=== PATIENT | female | born 1990 | race Caucasian/White ===

== ENCOUNTER → 2016-12-29 | Outpatient (CLI) | payer OTHER ==
--- NOTE | 2016-12-29 15:32 | Diagnostic Imaging Report ---
INDICATION: Undergoing anatomical assessment. TECHNIQUE: Multiple real-time grayscale images were obtained of the gravid uterus. CORRELATION STUDY: None FINDINGS: Single viable intrauterine is currently in a breech presentation. There appears to be normal amount of amniotic fluid. Placenta is developing anteriorly and without evidence for previa Cervical length is 3.76 cm. anatomical evaluation has an unremarkable appearance. However, owing to the position, the spine is nearly well assessed. Biometrical measurements are as follows: Biparietal diameter 4.74 cm, age 20 weeks 3 days . Head circumference 18.13 cm, age 20 weeks 4 days . Abdominal circumference 15.78 cm, age 21 weeks zero days . Femur length 3.63 cm, age 21 weeks 4 days . Sonographic estimated age: 21 weeks zero days. Sonographic estimated date of delivery: 05/11/2017. heart rate: 155 BPM Estimated Weight: 399 gm (+/- 58 gm) LMP Percentile: 67% IMPRESSION: 1. Single intrauterine in a breech presentation. Sonographic estimated age of 21 weeks zero days for an estimated date of delivery of May 11, 2017. 2. anatomical assessment is unremarkable. However, the spine cannot be well evaluated at this time. Dictated by: Dictated on workstation # [id number]
== END ==
LOC: RAD 09:59
PROVIDERS: ATTEND Obstetrics & Gynecology
DX: Z34.82 Encounter for supervision of other normal pregnancy, second trimester (principal)
CPT/HCPCS: 76805

== ENCOUNTER → 2017-02-22 | Outpatient (CLI) | payer OTHER ==
--- NOTE | 2017-02-22 13:02 | Diagnostic Imaging Report ---
EXAMINATION: OB ultrasound. INDICATION: Followup spine. FINDINGS: The position is cephalic. The heart rate is 143 BPM. The placenta is anterior. No placenta previa. The spine is better seen at this time with no abnormality seen. The KIRSTIN is 12.4 cm. IMPRESSION: The spine appears unremarkable. Completed survey. Dictated by: Dictated on workstation # [id number]
== END ==
LOC: RAD 09:50
PROVIDERS: ATTEND Obstetrics & Gynecology
DX: Z34.82 Encounter for supervision of other normal pregnancy, second trimester (principal); Z36 Encounter for antenatal screening of mother
CPT/HCPCS: 76816

== ENCOUNTER → 2017-04-14 | Outpatient (CLI) | payer OTHER | LOC: CARD 11:12 | PROVIDERS: ATTEND Internal Medicine Cardiovascular Disease | DX: Z34.90 Encounter for supervision of normal pregnancy, unspecified, unspecified trimester (principal); J45.909 Unspecified asthma, uncomplicated; F41.9 Anxiety disorder, unspecified; R07.89 Other chest pain ==

== ENCOUNTER 2017-04-24 09:21 | Inpatient (IN) | payer OTHER ==
[2017-04-24] VITALS (60 sets, daily range): BP systolic 81–152; BP diastolic 41–84
[~2017-04-24] VITALS: Ht 167.6 cm; Wt 97.1 kg
[2017-04-24] MEDS ORDERED: MISOPROSTOL 100 MCG (CYTOTEC) TAB PO ONE ×2 (10:15→15:00)
[2017-04-24] MEDS ORDERED: NS IV 500 ML 500 ML IV SCH (10:15)
[2017-04-24] MEDS ORDERED: MINERAL OIL CONCENTRATE 99.9% 15 ML UDC TOP SCH (10:15)
[2017-04-24 10:22] LABS: BASOPHILS % (AUTO) 0 % (0-10); EOSINOPHILS # (AUTO) 0.1 10^3/uL (0.0-0.3); EOSINOPHILS % (AUTO) 1 % (0-10); LYMPHOCYTES # (AUTO) 2.2 X 10^3 (1.0-4.0); LYMPHOCYTES % (AUTO) 16 % (12-44); MEAN CORPUSCULAR HEMOGLOBIN 29 PG (25-34); MEAN CORPUSCULAR HGB CONC 33 G/DL (32-36); MEAN CORPUSCULAR VOLUME 87 FL (80-99); MEAN PLATELET VOLUME 11.2 FL (7.4-10.4); MONOCYTES # (AUTO) 1.3 X 10^3 (0.0-1.0); MONOCYTES % (AUTO) 10 % (0-12); NEUTROPHILS # (AUTO) 9.7 X 10^3 (1.8-7.8); NEUTROPHILS % (AUTO) 73 % (42-75); PLATELET COUNT 184 10^3/uL (130-400); RED BLOOD COUNT 4.32 10^6/uL (4.35-5.85); RED CELL DISTRIBUTION WIDTH 13.7 % (10.0-14.5); WHITE BLOOD COUNT 13.3 10^3/uL (4.3-11.0)
[2017-04-24] MEDS: D5 LR IV SOLUTION 1,000 ML IV SCH ×2 (10:26→21:14)
[2017-04-24] MEDS ORDERED: PREN1TAB86 PO (10:56)
[2017-04-24] MEDS ORDERED: RT-ALBUINH IH (10:58)
--- NOTE | 2017-04-24 12:37 | History & Physical-OB ---
OB - Chief Complaint & HPI Date/Time Date of Admission: Date of Admission: Apr 24, 2017 at 9:21 am Time Seen by Provider: 08:30 Chief Complaint/History OB-Reason for Admission/Chief: Induction of Labor Hx : 7 Hx Para: 1 Expected Date of Delivery: May 13, 2017 Gestational Age in Weeks: 37 Gestational Age in Days: 2 Other reason for admission: Patient sent up for delivery due to Oligohydramnios on BPP in office today as well as score of 4/8. KIRSTIN was 3.9cm. Vertex presentation. BP elevated in office as well, 140s/90s History of Labs A pos Antibody neg RI RPR NR HBsAg NR HIV NR GC neg GBS neg AFP elevated on Quad screen Allergies and Home Medications Allergies Coded Allergies: No Known Drug Allergies (Unverified , 04/24/17) Home Medications Albuterol Sulfate 1 Puff Puff, 2 PUFF IH Q6H, (Reported) 1 PUFF = 90 MCG Vit W-Ca,Fe,FA(<1 mg) 1 Each Tablet, 1 EACH PO DAILY, (Reported) OB - History Hx of Present Care: Yes Ultrasounds: Normal mid trimester US Obstetrical Complications: Other (Abn Quad screen, Oligohydramnios) Medical Complications: None Delivery History Adverse Rxn to Tranfusion: No Patient Past Medical History scoliosis, asthma Social History/Family History HIV/AIDS: No Recent Infectious Disease Expo: No Sexually Transmitted Disease: No Alcohol Use: Denies Use Recreational Drug Use: No Immunizations Hepatitis A: Yes Hepatitis B: Yes OB - Admission Exam Physical Exam Date Seen by Provider: Apr 24, 2017 Time Seen by Provider: 08:40 HEENT: NCAT Heart: Rhythm Normal Lungs: Clear Abdomen: Gravid Extremities: Normal Reflexes: Normal Cervical Dilatation: 1cm Effacement: 75% Station: -2 Membranes: Intact Heart Rate: 130's Accelerations: Accelerations Present Decelerations: No Decelerations Short Term Variability: Present Spring Assembler Variability: Average (6-25) Contractions on Admission: >10 Minutes Apart Intensity: Mild Wilson Scoring Tool (Modified) Dilation (cm): 1-2cm (1) Effacement (%): 51-79% (2) Descent/Station: -2 (1) Cervix Consistency: Soft (2) Cervix Position: Middle/Mid-Position (1) Add 1 point for: Each previous vaginal delivery (1) Wilson Score: 8 Labs Laboratory Tests Test 04/24/17 10:00 Range/Units White Blood Count 13.3 H 4.3-11.0 10^3/uL Red Blood Count 4.32 L 4.35-5.85 10^6/uL Hemoglobin 12.5 11.5-16.0 G/DL Hematocrit 38 35-52 % Mean Corpuscular Volume 87 80-99 FL Mean Corpuscular Hemoglobin 29 25-34 PG Mean Corpuscular Hemoglobin Concent 33 32-36 G/DL Red Cell Distribution Width 13.7 10.0-14.5 % Platelet Count 184 130-400 10^3/uL Mean Platelet Volume 11.2 H 7.4-10.4 FL Neutrophils (%) (Auto) 73 42-75 % Lymphocytes (%) (Auto) 16 12-44 % Monocytes (%) (Auto) 10 0-12 % Eosinophils (%) (Auto) 1 0-10 % Basophils (%) (Auto) 0 0-10 % Neutrophils # (Auto) 9.7 H 1.8-7.8 X 10^3 Lymphocytes # (Auto) 2.2 1.0-4.0 X 10^3 Monocytes # (Auto) 1.3 H 0.0-1.0 X 10^3 Eosinophils # (Auto) 0.1 0.0-0.3 10^3/uL Basophils # (Auto) 0.0 0.0-0.1 10^3/uL OB - Assessment/Plan/Diagnosis Assessment Assessment: induction of labor Plan Plan: Induction Induction Method: per Misoprostol Protocol Discharge Diagnosis Diagnosis: 26 yo @ 37.2 Oligohydramnios Elevated serum AFP on quad screen- increased risk for NTD. GBS neg ADILIA THOMAS DO Apr 24, 2017 12:37 pm
[2017-04-24] MEDS ORDERED: MISOPROSTOL 200 MCG (CYTOTEC) TABLET PO ONE (14:00)
[2017-04-24] MEDS ORDERED: CATHETER FLUSH 10 ML SYR IV SCH (14:00)
[2017-04-24] MEDS ORDERED: SUFENTA 0.6MCG/ML BUPIVA 0.125 100 ML ONE (16:31)
[2017-04-24] MEDS ORDERED: fentaNYL INJECTION 100 MCG/2 ML AMP ONE (16:32)
[2017-04-24] MEDS ORDERED: LIDOCAINE PF 2% 5 ML (XYLOCAINE) VIAL ONE (16:32)
[2017-04-24] MEDS ORDERED: BUPIVACAINE 0.5% 30 ML (SENSORCAINE) VIAL ONE (16:32)
[2017-04-24] MEDS ORDERED: LACTATED RINGERS 1,000 ML IV SCH (17:28)
[2017-04-24] MEDS ORDERED: ONDANSETRON 4 MG/2 ML (SDV) Z0FRAN IV PRN (17:30)
[2017-04-24] MEDS ORDERED: NALOXONE 0.4 MG/ML 1 ML (NARCAN) VIAL IV PRN (17:30)
[2017-04-24] MEDS ORDERED: EPIDURAL (SUFENTA 0.6MCG/ML BUPIVA 0.125%) 100 ML BAG EPI PRN (17:30)
[2017-04-24] MEDS: diphenhydrAMINE 50 MG/ML INJ (BENADRYL) IV PRN ×2 (18:43→19:30)
[2017-04-24] MEDS ORDERED: ACETAMINOPHEN 500 MG TAB (TYLENOL) ONE (19:54)
[2017-04-24] MEDS ORDERED: ACETAMINOPHEN 500 MG TAB (TYLENOL) PO ONE (20:15)
[2017-04-24] MEDS ORDERED: OXYTOCIN/NORMAL SALINE 500 ML IV SCH (20:39)
[2017-04-24] MEDS ORDERED: LIDOCAINE/EPI 1%-1:200,000 (XYLOCAINE) 30 ML VIAL ONE (23:14)
[2017-04-25] VITALS (8 sets, daily range): BP systolic 114–130; BP diastolic 58–76
[2017-04-25] MEDS ORDERED: OXYTOCIN/NORMAL SALINE 500 ML IV SCH (00:02)
--- NOTE | 2017-04-25 00:08 | OB Labor & Delivery Record ---
L&D History Date of Service Date of Service: Apr 25, 2017 History Expected Date of Delivery: May 13, 2017 Gestational Age in Weeks: 37 Hx : 7 Hx Para: 1 Complications Events: Oliohydramnios (Elevated AFP on Quad), Routine care Operative Indications (Cesarea: N/A-Vaginal Delivery Intrapartal Events: None L&D Stage1 Stage One Onset of Labor - Date: Apr 25, 2017 Monitors and Tracing Monitor Mode: External Heart Rate: 150 Station: -2 Short Term Variability: Present Presentation: Vertex Vital Signs VS - Last 72 Hours, by Label 04/24/17 04/24/17 04/24/17 04/24/17 09:33 10:32 11:02 11:33 Temp 97.8 Pulse 100 82 81 85 Resp 18 18 18 18 B/P (MAP) 126/79 128/66 123/58 131/74 Pulse Ox 98 O2 Delivery Room Air Room Air Room Air Room Air 04/24/17 04/24/17 04/24/17 04/24/17 12:03 12:33 13:03 13:33 Temp 98.6 98.0 Pulse 82 72 76 74 Resp 18 18 18 18 B/P (MAP) 132/78 118/70 120/63 125/64 Pulse Ox 99 O2 Delivery Room Air Room Air Room Air Room Air 04/24/17 04/24/17 04/24/17 04/24/17 14:03 14:33 15:03 15:33 Temp 98.2 Pulse 70 69 74 71 Resp 18 18 18 18 B/P (MAP) 132/72 132/83 131/75 130/83 Pulse Ox 99 99 O2 Delivery Room Air Room Air Room Air Room Air 04/24/17 04/24/17 04/24/17 04/24/17 16:01 16:31 17:01 17:09 Temp 98.4 Pulse 71 77 96 86 Resp 18 18 18 18 B/P (MAP) 127/76 129/74 132/74 123/65 Pulse Ox 100 100 O2 Delivery Room Air Room Air Room Air Room Air 04/24/17 04/24/17 04/24/17 04/24/17 17:12 17:16 17:20 17:22 Pulse 90 96 68 64 Resp 18 18 18 18 B/P (MAP) 133/74 119/57 86/42 81/41 Pulse Ox 99 99 99 99 O2 Delivery Room Air Room Air Room Air Room Air 04/24/17 04/24/17 04/24/17 04/24/17 17:25 17:28 17:31 17:34 Temp 98.4 Pulse 72 90 93 97 Resp 18 18 18 18 B/P (MAP) 121/59 115/50 118/55 113/57 Pulse Ox 100 100 100 100 O2 Delivery Room Air Room Air Room Air Room Air 04/24/17 04/24/17 04/24/17 04/24/17 17:37 17:40 17:43 17:46 Pulse 82 93 85 82 Resp 18 18 18 18 B/P (MAP) 114/59 109/57 104/55 107/53 Pulse Ox 100 100 99 99 O2 Delivery Room Air Room Air Room Air Room Air 04/24/17 04/24/17 04/24/17 04/24/17 17:49 17:52 17:55 18:00 Pulse 81 86 78 81 Resp 18 18 18 18 B/P (MAP) 112/56 111/57 110/57 109/58 Pulse Ox 99 99 100 100 O2 Delivery Room Air Room Air Room Air Room Air 04/24/17 04/24/17 04/24/17 04/24/17 18:15 18:30 18:45 19:00 Temp 98.1 98.8 Pulse 88 93 75 83 Resp 18 18 18 18 B/P (MAP) 114/57 129/62 125/66 131/76 Pulse Ox 99 O2 Delivery Room Air Room Air Room Air Room Air 04/24/17 04/24/17 04/24/17 19:10 19:40 20:05 Temp 100.4 101.0 101.4 Pulse 93 Resp 20 Pulse Ox 98 O2 Delivery Room Air Rupture of Membranes Spontaneous Ruture of Membrane: No Amniotic Membrane Fluid Desc.: Clear Vaginal Bleeding Description: Normal Show Induction/Anesthesia Epidural Cath Placement - Time: 1707 Progress/Notes Misoprostol used x 2 doses prior to epidural placement and Arom. Patient augmented with pitocin at 3-4 cm after AROM and epidural placement L&D Stage2 Stage Two Stage II Date: Apr 25, 2017 Monitors and Tracing Monitor Mode: External Heart Rate: 150 Monitor Accelerations: Uniform Monitor Decelerations: Variable Senior Care Variability: Average (6-10) Short Term Variability: Present Position: Right Occiput Anterior Presentation: Vertex Cord Descript/Complications Cord Vessel Description: 3 Vessels Delivery Type Delivery Method: Spontaneous Vaginal Anterior Shoulder: Right Episiotomy/Perineal Laceration Laceraction(s)/Extensions: Yes Degree (describe repair) clitoral laceration noted and repaired using 3-0 rapide in normal fashion Condition of Infant Delivery 1 minute Comment: 8 5 minute Comment: 9 Notes Live female infant weight 6lbs 12 oz Condition of Infant Condition of Infant: Living Exam: No Observed Abnormalities Resuscitation Resuscitation: N/A - Spontaneous Resp L&D Stage3 Stage Three Stage III Date: Apr 25, 2017 Pictocin Pitocin Administration Comment: 30 mu wide open at delivery of placenta Placenta Delivery Placenta Delivery: Spontaneous Delivery Summary Summary blood loss >1000ml: No Vaginal blood loss >500ml: No 250 mL Attending at delivery: Adilia Thomas DO Condition of Delivery Examined: Cervix Examined, Uterus Explored Post Hemorrhage: No Condition of Mother stable Condition of Infant (s) stable ADILIA THOMAS DO Apr 25, 2017 00:08
[2017-04-25] MEDS ORDERED: MEASLES,MUMPS,RUBELLA 1 EA INJ SQ ONE (00:15)
[2017-04-25] MEDS ORDERED: TETANUS,DIPTH,PERTUSS P/F (BOOSTRIX) 0.5 ML VIAL IM ONE (00:15)
[2017-04-25] MEDS ORDERED: DIBUCAINE (NUPERCAINAL) 1% OINT 30 GM TOP PRN (00:15)
[2017-04-25] MEDS ORDERED: WITCH HAZEL(TUCKS) 40 EA JAR TOP PRN (00:15)
[2017-04-25] MEDS ORDERED: BENZOCAINE/MENTHOL (DERMOPLAST) 56 ML CAN TP PRN (00:15)
--- NOTE | 2017-04-25 00:33 | Progress Note-Standard ---
Standard Progress Note Progress Notes/Assess & Plan Date Seen by Provider: Apr 25, 2017 Time Seen by Provider: 11:20 Progress/Assessment & Plan Patient doing well, no concerns voiced this am. Denies lightheadedness/ dizzyness on ambulation. Lochia light. Pain well controlled. Ambulating and voiding freely. Vital Sign - Last 24 Hours 04/24/17 04/24/17 04/24/17 04/24/17 11:33 12:03 12:33 13:03 Temp 98.6 Pulse 85 82 72 76 Resp 18 18 18 18 B/P (MAP) 131/74 132/78 118/70 120/63 Pulse Ox 99 O2 Delivery Room Air Room Air Room Air Room Air 04/24/17 04/24/17 04/24/17 04/24/17 13:33 14:03 14:33 15:03 Temp 98.0 98.2 Pulse 74 70 69 74 Resp 18 18 18 18 B/P (MAP) 125/64 132/72 132/83 131/75 Pulse Ox 99 99 O2 Delivery Room Air Room Air Room Air Room Air 04/24/17 04/24/17 04/24/17 04/24/17 15:33 16:01 16:31 17:01 Temp 98.4 Pulse 71 71 77 96 Resp 18 18 18 18 B/P (MAP) 130/83 127/76 129/74 132/74 Pulse Ox 100 O2 Delivery Room Air Room Air Room Air Room Air 04/24/17 04/24/17 04/24/17 04/24/17 17:09 17:12 17:16 17:20 Pulse 86 90 96 68 Resp 18 18 18 18 B/P (MAP) 123/65 133/74 119/57 86/42 Pulse Ox 100 99 99 99 O2 Delivery Room Air Room Air Room Air Room Air 04/24/17 04/24/17 04/24/17 04/24/17 17:22 17:25 17:28 17:31 Pulse 64 72 90 93 Resp 18 18 18 18 B/P (MAP) 81/41 121/59 115/50 118/55 Pulse Ox 99 100 100 100 O2 Delivery Room Air Room Air Room Air Room Air 04/24/17 04/24/17 04/24/17 04/24/17 17:34 17:37 17:40 17:43 Temp 98.4 Pulse 97 82 93 85 Resp 18 18 18 18 B/P (MAP) 113/57 114/59 109/57 104/55 Pulse Ox 100 100 100 99 O2 Delivery Room Air Room Air Room Air Room Air 04/24/17 04/24/17 04/24/17 04/24/17 17:46 17:49 17:52 17:55 Pulse 82 81 86 78 Resp 18 18 18 18 B/P (MAP) 107/53 112/56 111/57 110/57 Pulse Ox 99 99 99 100 O2 Delivery Room Air Room Air Room Air Room Air 04/24/17 04/24/17 04/24/17 04/24/17 18:00 18:15 18:30 18:45 Temp 98.1 98.8 Pulse 81 88 93 75 Resp 18 18 18 18 B/P (MAP) 109/58 114/57 129/62 125/66 Pulse Ox 100 99 O2 Delivery Room Air Room Air Room Air Room Air 04/24/17 04/24/17 04/24/17 04/24/17 19:00 19:10 19:20 19:30 Temp 100.4 Pulse 83 93 81 85 Resp 18 20 18 18 B/P (MAP) 131/76 104/49 134/70 Pulse Ox 98 O2 Delivery Room Air Room Air Room Air Room Air 04/24/17 04/24/17 04/24/17 04/24/17 19:40 19:46 20:00 20:05 Temp 101.0 101.4 101.4 Pulse 86 90 Resp 18 18 B/P (MAP) 131/59 137/63 O2 Delivery Room Air Room Air 04/24/17 04/24/17 04/24/17 04/24/17 20:17 20:31 20:47 21:00 Temp 100.7 Pulse 80 76 75 85 Resp 18 18 18 18 B/P (MAP) 124/69 142/84 132/68 123/66 O2 Delivery Room Air Room Air Room Air Room Air 04/24/17 04/24/17 04/24/17 04/24/17 21:17 21:21 21:25 21:30 Temp 100.8 Pulse 76 87 89 82 Resp 18 18 18 18 B/P (MAP) 132/66 146/58 139/67 136/63 Pulse Ox 97 97 99 O2 Delivery Room Air Room Air Room Air Room Air 04/24/17 04/24/17 04/24/17 04/24/17 21:41 21:45 21:50 21:55 Pulse 85 79 85 86 Resp 18 18 18 18 B/P (MAP) 131/65 129/62 128/75 129/67 Pulse Ox 96 98 98 98 O2 Delivery Room Air Room Air Room Air Room Air 04/24/17 04/24/17 04/24/17 04/24/17 22:00 22:05 22:10 22:15 Pulse 86 92 89 80 Resp 18 18 18 18 B/P (MAP) 133/77 135/82 135/62 135/72 Pulse Ox 98 98 98 99 O2 Delivery Room Air Room Air Room Air Room Air 04/24/17 04/24/17 04/24/17 04/24/17 22:33 22:50 23:05 23:20 Pulse 88 74 84 100 Resp 18 18 18 18 B/P (MAP) 139/63 128/62 126/58 152/65 Pulse Ox 98 98 97 99 O2 Delivery Room Air Room Air Room Air Room Air 04/25/17 04/25/17 04/25/17 04/25/17 00:02 00:18 00:32 04:00 Temp 98.2 Pulse 100 98 96 81 Resp 18 18 18 18 B/P (MAP) 114/58 119/58 123/64 118/65 O2 Delivery Room Air Room Air Room Air 04/25/17 09:08 Temp 98.2 Pulse 99 Resp 18 B/P (MAP) 130/76 Pulse Ox 98 O2 Delivery Room Air Intake and Output 04/24/17 04/24/17 04/25/17 15:00 23:00 07:00 Intake Total 500 ml 2000 ml Balance 500 ml 2000 ml Uterine fundus, firm and palpated below umbilicus Diagnosis: PPD 1 NVD Acute blood loss anemia superimposed on anemia of P: Replace iron Possible dc tomorrow ADILIA THOMAS DO Apr 25, 2017 00:33
[2017-04-25] MEDS ORDERED: IBUP-1773 PO (00:37)
[2017-04-25] MEDS ORDERED: BENZ56AE2 TP (00:37)
[2017-04-25] MEDS ORDERED: DOCU100C37 PO (00:37)
[2017-04-25] MEDS ORDERED: ACET1TAB43 PO (00:37)
--- NOTE | 2017-04-25 00:38 | Discharge Inst-Women's Service ---
Discharge Inst-Women's Serv Depart Medication/Instructions New, Converted or Re-Newed RX: RX on Chart Consults/Follow Up Additional Follow Up: Yes Orders/Referrals Dr. Thomas in 6 weeks Activity Activity: Activity as Tolerated Driving Instructions: No Driving for 1 Week NO SMOKING: NO SMOKING Nothing Inside Vagina: No Douching, No Bovill, No Tampons Diet Discharge Diet: No Restrictions Symptoms to Report to : Bleeding Excessive, Pain Increased, Fever Over 101 Degrees F, Vaginal Bleeding Increase, Questions/Concerns For Any Problems or Questions: Contact Your Physician Skin/Wound Care Bathing Instructions: Shower ( x 2 weeks) ADILIA THOMAS DO Apr 25, 2017 12:38 am
[2017-04-25] MEDS: IBUPROFEN 600 MG (MOTRIN) TAB PO SCH ×4 (01:09→20:11)
[2017-04-25] MEDS ORDERED: CATHETER FLUSH 10 ML SYR IV SCH (06:00)
[2017-04-25] MEDS: PRENATAL VITAMIN 1 EA TAB PO SCH (09:07)
[2017-04-25] MEDS: DOCUSATE SODIUM 100 MG (COLACE) CAP PO SCH ×2 (09:08→20:11)
[2017-04-25] MEDS: FERROUS SULF 325 MG (IRON) TAB PO SCH (09:08)
--- NOTE | 2017-04-25 10:29 | Anesthesia-Regional Post-Op ---
Regional Patient Condition Mental Status: Alert, Oriented x3 Circulation: Same as Pre-Op Headache: Absent Sensation: Full Recovery Motor Block: Absent Post Op Complications Complications None Follow Up Care/Instructions Patient Instructions None needed. Anesthesia/Patient Condition Patient is doing well, no complaints, stable vital signs, no apparent adverse anesthesia problems. No complications reported per nursing. MAGNUS LANDERS CRNA Apr 25, 2017 10:29
[2017-04-25] MEDS: APAP 300 MG/CODEINE 30 MG (TYLENOL #3) TAB PO PRN (14:06)
[2017-04-26 03:00] VITALS: BP 123/82
[2017-04-26] MEDS: APAP 300 MG/CODEINE 30 MG (TYLENOL #3) TAB PO PRN (03:10)
[2017-04-26] MEDS: IBUPROFEN 600 MG (MOTRIN) TAB PO SCH ×2 (03:10→08:29)
[2017-04-26 05:44] LABS: BASOPHILS % (AUTO) 0 % (0-10); EOSINOPHILS # (AUTO) 0.1 10^3/uL (0.0-0.3); EOSINOPHILS % (AUTO) 1 % (0-10); LYMPHOCYTES # (AUTO) 2.3 X 10^3 (1.0-4.0); LYMPHOCYTES % (AUTO) 21 % (12-44); MEAN CORPUSCULAR HEMOGLOBIN 29 PG (25-34); MEAN CORPUSCULAR HGB CONC 33 G/DL (32-36); MEAN CORPUSCULAR VOLUME 88 FL (80-99); MEAN PLATELET VOLUME 11.2 FL (7.4-10.4); MONOCYTES % (AUTO) 9 % (0-12); NEUTROPHILS # (AUTO) 7.4 X 10^3 (1.8-7.8); NEUTROPHILS % (AUTO) 68 % (42-75); PLATELET COUNT 167 10^3/uL (130-400); RED BLOOD COUNT 3.95 10^6/uL (4.35-5.85); RED CELL DISTRIBUTION WIDTH 13.8 % (10.0-14.5); WHITE BLOOD COUNT 10.9 10^3/uL (4.3-11.0)
[2017-04-26 08:25] VITALS: BP 132/74
--- NOTE | 2017-04-26 08:28 | Postpartum Progress Note ---
Note Note Day # 2 Subjective: Patient is without complaints. Ambulating, voiding. Tolerating a regular diet without nausea or vomiting. Normal lochia. Pain is well controlled with oral pain medications. Bottle feeding. Reports decreased hearing in left ear, feels congested, son also has URI. States had mastoiditis following first delivery from ear drum "popping" with pushing - pushed significantly less long this time however. Objective: VS - Last 72 Hours, by Label 04/24/17 04/24/17 04/24/17 04/24/17 09:33 10:32 11:02 11:33 Temp 97.8 Pulse 100 82 81 85 Resp 18 18 18 18 B/P (MAP) 126/79 128/66 123/58 131/74 Pulse Ox 98 O2 Delivery Room Air Room Air Room Air Room Air 04/24/17 04/24/17 04/24/17 04/24/17 12:03 12:33 13:03 13:33 Temp 98.6 98.0 Pulse 82 72 76 74 Resp 18 18 18 18 B/P (MAP) 132/78 118/70 120/63 125/64 Pulse Ox 99 O2 Delivery Room Air Room Air Room Air Room Air 04/24/17 04/24/17 04/24/17 04/24/17 14:03 14:33 15:03 15:33 Temp 98.2 Pulse 70 69 74 71 Resp 18 18 18 18 B/P (MAP) 132/72 132/83 131/75 130/83 Pulse Ox 99 99 O2 Delivery Room Air Room Air Room Air Room Air 04/24/17 04/24/17 04/24/17 04/24/17 16:01 16:31 17:01 17:09 Temp 98.4 Pulse 71 77 96 86 Resp 18 18 18 18 B/P (MAP) 127/76 129/74 132/74 123/65 Pulse Ox 100 100 O2 Delivery Room Air Room Air Room Air Room Air 04/24/17 04/24/17 04/24/17 04/24/17 17:12 17:16 17:20 17:22 Pulse 90 96 68 64 Resp 18 18 18 18 B/P (MAP) 133/74 119/57 86/42 81/41 Pulse Ox 99 99 99 99 O2 Delivery Room Air Room Air Room Air Room Air 7/304/24/17 04/24/17 04/24/17 17:25 17:28 17:31 17:34 Temp 98.4 Pulse 72 90 93 97 Resp 18 18 18 18 B/P (MAP) 121/59 115/50 118/55 113/57 Pulse Ox 100 100 100 100 O2 Delivery Room Air Room Air Room Air Room Air 04/24/17 04/24/17 04/24/17 04/24/17 17:37 17:40 17:43 17:46 Pulse 82 93 85 82 Resp 18 18 18 18 B/P (MAP) 114/59 109/57 104/55 107/53 Pulse Ox 100 100 99 99 O2 Delivery Room Air Room Air Room Air Room Air 04/24/17 04/24/17 04/24/17 04/24/17 17:49 17:52 17:55 18:00 Pulse 81 86 78 81 Resp 18 18 18 18 B/P (MAP) 112/56 111/57 110/57 109/58 Pulse Ox 99 99 100 100 O2 Delivery Room Air Room Air Room Air Room Air 04/24/17 04/24/17 04/24/17 04/24/17 18:15 18:30 18:45 19:00 Temp 98.1 98.8 Pulse 88 93 75 83 Resp 18 18 18 18 B/P (MAP) 114/57 129/62 125/66 131/76 Pulse Ox 99 O2 Delivery Room Air Room Air Room Air Room Air 04/24/17 04/24/17 04/24/17 04/24/17 19:10 19:20 19:30 19:40 Temp 100.4 101.0 Pulse 93 81 85 Resp 20 18 18 B/P (MAP) 104/49 134/70 Pulse Ox 98 O2 Delivery Room Air Room Air Room Air 04/24/17 04/24/17 04/24/17 04/24/17 19:46 20:00 20:05 20:17 Temp 101.4 101.4 Pulse 86 90 80 Resp 18 18 18 B/P (MAP) 131/59 137/63 124/69 O2 Delivery Room Air Room Air Room Air 04/24/17 04/24/17 04/24/17 04/24/17 20:31 20:47 21:00 21:17 Temp 100.7 Pulse 76 75 85 76 Resp 18 18 18 18 B/P (MAP) 142/84 132/68 123/66 132/66 O2 Delivery Room Air Room Air Room Air Room Air 04/24/17 04/24/17 04/24/17 04/24/17 21:21 21:25 21:30 21:41 Temp 100.8 Pulse 87 89 82 85 Resp 18 18 18 18 B/P (MAP) 146/58 139/67 136/63 131/65 Pulse Ox 97 97 99 96 O2 Delivery Room Air Room Air Room Air Room Air 04/24/17 04/24/17 04/24/17 04/24/17 21:45 21:50 21:55 22:00 Pulse 79 85 86 86 Resp 18 18 18 18 B/P (MAP) 129/62 128/75 129/67 133/77 Pulse Ox 98 98 98 98 O2 Delivery Room Air Room Air Room Air Room Air 04/24/17 04/24/17 04/24/17 04/24/17 22:05 22:10 22:15 22:33 Pulse 92 89 80 88 Resp 18 18 18 18 B/P (MAP) 135/82 135/62 135/72 139/63 Pulse Ox 98 98 99 98 O2 Delivery Room Air Room Air Room Air Room Air 04/24/17 04/24/17 04/24/17 04/25/17 22:50 23:05 23:20 00:02 Pulse 74 84 100 100 Resp 18 18 18 18 B/P (MAP) 128/62 126/58 152/65 114/58 Pulse Ox 98 97 99 O2 Delivery Room Air Room Air Room Air Room Air 04/25/17 04/25/17 04/25/17 04/25/17 00:18 00:32 04:00 09:08 Temp 98.2 98.2 Pulse 98 96 81 99 Resp 18 18 18 18 B/P (MAP) 119/58 123/64 118/65 130/76 Pulse Ox 98 O2 Delivery Room Air Room Air Room Air 04/25/17 04/25/17 04/25/17 04/26/17 14:06 16:42 20:10 03:00 Temp 97.9 98.2 97.8 98.2 Pulse 83 84 85 77 Resp 18 18 18 18 B/P (MAP) 122/76 116/71 128/75 123/82 Pulse Ox 98 97 98 99 O2 Delivery Room Air Room Air Room Air Room Air Physical Exam: General - Alert and oriented, no apparent distress Abdomen - Soft, appropriately tender to palpation, non-distended, fundus firm at umbilicus Extremities - 1+ bilat pitting edema, negative Reynaldo's bilaterally Laboratory Tests Test 04/26/17 05:30 Range/Units White Blood Count 10.9 4.3-11.0 10^3/uL Red Blood Count 3.95 L 4.35-5.85 10^6/uL Hemoglobin 11.4 L 11.5-16.0 G/DL Hematocrit 35 35-52 % Mean Corpuscular Volume 88 80-99 FL Mean Corpuscular Hemoglobin 29 25-34 PG Mean Corpuscular Hemoglobin Concent 33 32-36 G/DL Red Cell Distribution Width 13.8 10.0-14.5 % Platelet Count 167 130-400 10^3/uL Mean Platelet Volume 11.2 H 7.4-10.4 FL Neutrophils (%) (Auto) 68 42-75 % Lymphocytes (%) (Auto) 21 12-44 % Monocytes (%) (Auto) 9 0-12 % Eosinophils (%) (Auto) 1 0-10 % Basophils (%) (Auto) 0 0-10 % Neutrophils # (Auto) 7.4 1.8-7.8 X 10^3 Lymphocytes # (Auto) 2.3 1.0-4.0 X 10^3 Monocytes # (Auto) 1.0 0.0-1.0 X 10^3 Eosinophils # (Auto) 0.1 0.0-0.3 10^3/uL Basophils # (Auto) 0.0 0.0-0.1 10^3/uL Assessment: 26 y/o post- day # 2, status post spontaneous vaginal delivery. Recovering well, hemodynamically stable Plan: Routine care. Encourage ambulation. Plan for discharge today, f/u in [address] Avitia. Discussed return si/sx and conservative management of congestion/URI symptoms. If hearing loss does not improve, will need to see PCP/ENT. Doubt related to pushing given her overall clinical picture but pt is aware to call with fevers, chills, pain, increased hearing loss, other concerns. Vitals - Labs Vital Signs - I&O Vital Signs Date Time Temp Pulse Resp B/P (MAP) Pulse Ox O2 Delivery O2 Flow Rate FiO2 7/5/17 03:00 98.2 77 18 123/82 99 Room Air 04/25/17 20:10 97.8 85 18 128/75 98 Room Air 04/25/17 16:42 98.2 84 18 116/71 97 Room Air 04/25/17 14:06 97.9 83 18 122/76 98 Room Air 04/25/17 09:08 98.2 99 18 130/76 98 Room Air Labs Laboratory Tests 04/26/17 05:30: White Blood Count 10.9, Red Blood Count 3.95L, Hemoglobin 11.4L, Hematocrit 35, Mean Corpuscular Volume 88, Mean Corpuscular Hemoglobin 29, Mean Corpuscular Hemoglobin Concent 33, Red Cell Distribution Width 13.8, Platelet Count 167, Mean Platelet Volume 11.2H, Neutrophils (%) (Auto) 68, Lymphocytes (%) (Auto) 21 , Monocytes (%) (Auto) 9, Eosinophils (%) (Auto) 1, Basophils (%) (Auto) 0, Neutrophils # (Auto) 7.4, Lymphocytes # (Auto) 2.3, Monocytes # (Auto) 1.0, Eosinophils # (Auto) 0.1, Basophils # (Auto) 0.0 JUAN DIEGO BERGER MD Apr 26, 2017 08:28
[2017-04-26] MEDS: FERROUS SULF 325 MG (IRON) TAB PO SCH (08:29)
[2017-04-26] MEDS: PRENATAL VITAMIN 1 EA TAB PO SCH (08:29)
== END 2017-04-26 12:00 | disposition home or self-care (01) | DRG 775 ==
LOC: LDRP 09:21
PROVIDERS: ADMIT Obstetrics & Gynecology; ATTEND Obstetrics & Gynecology
PROC: 3E0DXGC Introduction of Other Therapeutic Substance into Mouth and Pharynx, External Approach (ICD-10-PCS; 2017-04-24)
PROC: 10E0XZZ Delivery of Products of Conception, External Approach (ICD-10-PCS; principal; 2017-04-25)
PROC: 0HQ9XZZ Repair Perineum Skin, External Approach (ICD-10-PCS; 2017-04-25)
DX: O41.03X0 Oligohydramnios, third trimester, not applicable or unspecified (principal); O70.0 First degree perineal laceration during delivery; Z37.0 Single live birth; Z3A.37 37 weeks gestation of pregnancy
CPT/HCPCS: 36415; 85025; 86850; 86900; 86901

== ENCOUNTER 2020-01-14 13:31 | Emergency (ER) | payer OTHER ==
[~2020-01-14] VITALS: Ht 167 cm; Wt 68.1 kg
[~2020-01-14 13:31] MED LIST: ACET1TAB43 PO; BENZ56AE2 TP; DOCU100C37 PO; IBUP-1773 PO; PREN1TAB86 PO; RT-ALBUINH IH
[2020-01-14 14:10] LABS: BASOPHILS % (AUTO) 0 % (0-10); EOSINOPHILS # (AUTO) 0.1 10^3/uL (0.0-0.3); EOSINOPHILS % (AUTO) 1 % (0-10); HEMATOCRIT 43 % (35-52); HEMOGLOBIN 14.8 G/DL (11.5-16.0); LYMPHOCYTES # (AUTO) 2.5 X 10^3 (1.0-4.0); LYMPHOCYTES % (AUTO) 25 % (12-44); MEAN CORPUSCULAR HEMOGLOBIN 30 PG (25-34); MEAN CORPUSCULAR HGB CONC 34 G/DL (32-36); MEAN CORPUSCULAR VOLUME 88 FL (80-99); MEAN PLATELET VOLUME 10.5 FL (7.4-10.4); MONOCYTES # (AUTO) 0.9 X 10^3 (0.0-1.0); MONOCYTES % (AUTO) 9 % (0-12); NEUTROPHILS # (AUTO) 6.3 X 10^3 (1.8-7.8); NEUTROPHILS % (AUTO) 65 % (42-75); PLATELET COUNT 261 10^3/uL (130-400); RED CELL DISTRIBUTION WIDTH 13.4 % (10.0-14.5); WHITE BLOOD COUNT 9.7 10^3/uL (4.3-11.0)
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
[2020-01-14 14:26] LABS: ALANINE AMINOTRANSFERASE 18 U/L (0-55); ALBUMIN 4.3 GM/DL (3.2-4.5); ALKALINE PHOSPHATASE 61 U/L (40-136); BILIRUBIN,TOTAL 0.7 MG/DL (0.1-1.0); BUN/CREATININE RATIO 10; CALCIUM 9.5 MG/DL (8.5-10.1); CARBON DIOXIDE 20 MMOL/L (21-32); CHLORIDE 111 MMOL/L (98-107); GFR ESTIMATED > 60; GLUCOSE 75 MG/DL (70-105); POTASSIUM 3.6 MMOL/L (3.6-5.0); SODIUM 138 MMOL/L (135-145); TOTAL PROTEIN 7.1 GM/DL (6.4-8.2)
[2020-01-14] MEDS ORDERED: HOLD METFORMIN - RECEIVED CONTRAST 20 ML VIAL IV SCH (14:30)
[2020-01-14] MEDS ORDERED: NS 100 ML (IVPB) BAG IV ONE (14:30)
[2020-01-14] MEDS ORDERED: IOHEXOL 350 MG/ML 100 ML (OMNIPAQUE 350) VIAL IV ONE (14:30)
--- NOTE | 2020-01-14 17:25 | Diagnostic Imaging Report ---
PROCEDURE: CT angiography of the chest with contrast. TECHNIQUE: Multiple contiguous axial images were obtained through the chest after uneventful bolus administration of intravenous contrast. 3D reconstructed CTA MIP acquisitions were also performed. Auto Exposure Controls were utilized during the CT exam to meet ALARA standards for radiation dose reduction. INDICATION: Cough and fever. Shortness of breath. Recent travel. History of pulmonary embolism. COMPARISON: No relevant comparison is available. FINDINGS: There is adequate opacification of the pulmonary arterial system for diagnostic evaluation. There are no filling defects within the pulmonary arteries present to suggest embolism. Thoracic aorta normal in caliber without dissection or aneurysm. Heart size is normal. There is no pericardial collection. There are no findings of pathologic enlargement of mediastinal, hilar or axillary lymph nodes. The lungs demonstrate no findings of focal infiltrate or consolidation. No groundglass opacities or abnormal interstitial changes are evident. There is no effusion. There is no pneumothorax. There is no pulmonary nodule or mass. The upper abdomen demonstrates no acute process. There is no acute or suspicious osseous abnormality. IMPRESSION: 1. No CT radiographic evidence of pulmonary embolism. 2. Thoracic aorta unremarkable. 3. Lungs appear clear without evidence of interstitial infiltrates or groundglass opacities. No alveolar consolidation. 4. No pathologic thoracic lymphadenopathy. Dictated by: Dictated on workstation # [id number]
[2020-01-14 17:55] VITALS: BP 120/69
--- NOTE | 2020-01-14 17:55 | NUR ---
COVID SWAB DONE AND SENT TO LAB
== END 2020-01-14 17:55 | disposition home or self-care (01) ==
LOC: EDUNIT# 13:31 → ER 13:36
DX: B34.9 Viral infection, unspecified (principal); J45.909 Unspecified asthma, uncomplicated; M79.7 Fibromyalgia; F41.9 Anxiety disorder, unspecified; Z86.711 Personal history of pulmonary embolism; Z79.899 Other long term (current) drug therapy
CPT/HCPCS: 36415; 71275; 80053; 84145; 84703; 85025; 85379; 86141; 87430; 87635; 87804

== ENCOUNTER 2020-03-21 21:22 | Emergency (ER) | payer OTHER ==
[~2020-03-21] VITALS: Ht 167 cm; Wt 68.1 kg
[2020-03-21 21:39] LABS: BILIRUBIN,URINE NEGATIVE (NEGATIVE); CLARITY,URINE CLEAR; COLOR,URINE YELLOW; GLUCOSE, URINE (UA) NEGATIVE (NEGATIVE); KETONES,URINE NEGATIVE (NEGATIVE); LEUKOCYTE ESTERASE ,URINE NEGATIVE (NEGATIVE); NITRITE,URINE NEGATIVE (NEGATIVE); PH,URINE 6.5 (5-9); PROTEIN,URINE NEGATIVE (NEGATIVE)
[2020-03-21] MEDS ORDERED: ONDANSETRON 4 MG/2 ML (SDV) Z0FRAN IVP ONE (21:45)
[2020-03-21] MEDS ORDERED: NS IV 1000 ML 1,000 ML IV SCH (21:45)
[2020-03-21] MEDS ORDERED: fentaNYL INJECTION 100 MCG/2 ML AMP IVP ONE (21:45)
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
[2020-03-21 21:48] LABS: BASOPHILS % (AUTO) 1 % (0-10); EOSINOPHILS # (AUTO) 0.1 10^3/uL (0.0-0.3); EOSINOPHILS % (AUTO) 1 % (0-10); HEMATOCRIT 43 % (35-52); HEMOGLOBIN 14.6 G/DL (11.5-16.0); LYMPHOCYTES # (AUTO) 2.6 X 10^3 (1.0-4.0); LYMPHOCYTES % (AUTO) 33 % (12-44); MEAN CORPUSCULAR HEMOGLOBIN 30 PG (25-34); MEAN CORPUSCULAR HGB CONC 34 G/DL (32-36); MEAN CORPUSCULAR VOLUME 89 FL (80-99); MEAN PLATELET VOLUME 10.4 FL (7.4-10.4); MONOCYTES # (AUTO) 0.8 X 10^3 (0.0-1.0); MONOCYTES % (AUTO) 11 % (0-12); NEUTROPHILS # (AUTO) 4.3 X 10^3 (1.8-7.8); NEUTROPHILS % (AUTO) 55 % (42-75); PLATELET COUNT 257 10^3/uL (130-400); WHITE BLOOD COUNT 7.8 10^3/uL (4.3-11.0)
[2020-03-21 21:59] LABS: BACTERIA,URINE TRACE /HPF; RBC,URINE 0-2 /HPF; WBC,URINE 0-2 /HPF
[2020-03-21 22:00] LABS: AMORPHOUS SEDIMENT,UR RARE AMOR URATES /LPF; SQUAMOUS EPITHELIAL CELL,UR 0-2 /HPF
[2020-03-21 22:02] LABS: ALBUMIN 4.1 GM/DL (3.2-4.5); CHLORIDE 106 MMOL/L (98-107); POTASSIUM 3.7 MMOL/L (3.6-5.0); SODIUM 141 MMOL/L (135-145)
[2020-03-21 22:03] LABS: CALCIUM 9.4 MG/DL (8.5-10.1)
[2020-03-21 22:04] LABS: TOTAL PROTEIN 7.1 GM/DL (6.4-8.2)
[2020-03-21 22:06] LABS: BILIRUBIN,TOTAL 0.2 MG/DL (0.1-1.0); CARBON DIOXIDE 26 MMOL/L (21-32)
[2020-03-21 22:08] LABS: ALKALINE PHOSPHATASE 75 U/L (40-136); CREATININE SERUM 0.88 MG/DL (0.60-1.30); GFR ESTIMATED > 60
[2020-03-21 22:09] LABS: BUN/CREATININE RATIO 17
[2020-03-21 22:11] LABS: ALANINE AMINOTRANSFERASE 16 U/L (0-55)
[2020-03-21] MEDS ORDERED: IOHEXOL 350 MG/ML 100 ML (OMNIPAQUE 350) VIAL IV ONE (22:15)
[2020-03-21] MEDS ORDERED: NS 100 ML (IVPB) BAG IV ONE (22:15)
[2020-03-21 22:21] LABS: GLUCOSE 53 MG/DL (70-105)
[2020-03-21] MEDS ORDERED: DEXTROSE 50% 50 ML (IMS) SYR IV ONE (22:30)
[2020-03-21 23:00] VITALS: BP 131/90
--- NOTE | 2020-03-22 06:50 | Diagnostic Imaging Report ---
PROCEDURE: CT abdomen and pelvis with contrast. TECHNIQUE: Multiple contiguous axial images were obtained through the abdomen and pelvis after administration of intravenous contrast. Auto Exposure Controls were utilized during the CT exam to meet ALARA standards for radiation dose reduction. INDICATION: Abdominal pain COMPARISON: None available FINDINGS: Minimal right basilar scarring and/or atelectasis. The liver, spleen, adrenal glands, and pancreas are unremarkable. The gallbladder is unremarkable. The kidneys are unremarkable. No aneurysmal dilatation of the abdominal aorta. The appendix is unremarkable. The urinary bladder is unremarkable. The uterus and adnexal structures are unremarkable for age. No bowel obstruction or pneumatosis. The colon is predominantly decompressed. No significant adenopathy, free air, or free fluid within the abdomen or pelvis. No acute osseous abnormality. IMPRESSION: No acute abnormality. Agree with preliminary interpretation. Dictated by: Dictated on workstation # [id number]
== END 2020-03-21 23:01 | disposition home or self-care (01) ==
LOC: EDUNIT# 21:22 → ER 21:24
DX: R10.32 Left lower quadrant pain (principal); R10.12 Left upper quadrant pain; E16.2 Hypoglycemia, unspecified; J45.909 Unspecified asthma, uncomplicated; Z82.49 Family history of ischemic heart disease and other diseases of the circulatory system; Z80.3 Family history of malignant neoplasm of breast
CPT/HCPCS: 36415; 74177; 80053; 81000; 82962; 84703; 85025; 96374; 96375

== ENCOUNTER 2021-05-02 20:44 | Emergency (ER) | payer OTHER ==
[~2021-05-02] VITALS: Ht 167.7 cm; Wt 72.5 kg
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
[2021-05-02 21:44] LABS: BASOPHILS # (AUTO) 0.1 10^3/uL (0.0-0.1); BASOPHILS % (AUTO) 1 % (0-10); EOSINOPHILS # (AUTO) 0.1 10^3/uL (0.0-0.3); EOSINOPHILS % (AUTO) 1 % (0-10); HEMATOCRIT 41 % (35-52); HEMOGLOBIN 13.6 g/dL (11.5-16.0); LYMPHOCYTES # (AUTO) 2.7 10^3/uL (1.0-4.0); LYMPHOCYTES % (AUTO) 26 % (12-44); MEAN CORPUSCULAR HEMOGLOBIN 31 pg (25-34); MEAN CORPUSCULAR HGB CONC 33 g/dL (32-36); MEAN CORPUSCULAR VOLUME 93 fL (80-99); MEAN PLATELET VOLUME 10.2 fL (9.0-12.2); MONOCYTES # (AUTO) 0.7 10^3/uL (0.0-1.0); MONOCYTES % (AUTO) 7 % (0-12); NEUTROPHILS # (AUTO) 6.5 10^3/uL (1.8-7.8); NEUTROPHILS % (AUTO) 65 % (42-75); PLATELET COUNT 248 10^3/uL (130-400); WHITE BLOOD COUNT 10.1 10^3/uL (4.3-11.0)
[2021-05-02 21:54] LABS: BILIRUBIN,URINE NEGATIVE (NEGATIVE); COLOR,URINE YELLOW; GLUCOSE, URINE (UA) NEGATIVE (NEGATIVE); KETONES,URINE NEGATIVE (NEGATIVE); LEUKOCYTE ESTERASE ,URINE NEGATIVE (NEGATIVE); NITRITE,URINE NEGATIVE (NEGATIVE); PH,URINE 6.5 (5-9); PROTEIN,URINE NEGATIVE (NEGATIVE)
[2021-05-02 21:59] LABS: CLARITY,URINE SL CLOUDY
[2021-05-02 22:00] LABS: BACTERIA,URINE TRACE /HPF
[2021-05-02 22:35] VITALS: BP 157/100
== END 2021-05-02 22:35 | disposition home or self-care (01) ==
LOC: EDUNIT# 20:44 → ER 20:46
DX: O20.0 Threatened abortion (principal); J45.909 Unspecified asthma, uncomplicated; Z3A.01 Less than 8 weeks gestation of pregnancy
CPT/HCPCS: 36415; 81000; 84702; 85025

== ENCOUNTER → 2021-05-03 | Outpatient (CLI) | payer OTHER ==
--- NOTE | 2021-05-03 12:10 | Diagnostic Imaging Report ---
Technique: Live ultrasound was performed over the gravid uterus. REASON FOR EXAM: Vaginal bleeding. COMPARISON: None. FINDINGS: A sonolucent focus is seen within the endometrium demonstrating decidual reaction and measuring 0.5 cm, consistent with a 5 week 0 day gestation. These are within range the clinical dates. No pole or yolk sac is seen at this time. No heart tones are present. No abnormalities are seen. The bilateral ovaries are well visualized and have a normal appearance. The right ovary measures 2.7 x 1.6 x 3.0 cm. The left ovary measures 2.4 x 2.8 x 1.8 cm. No free fluid is visualized within the posterior cul-de-sac. IMPRESSION: 1. Sonolucent focus within the endometrium, which may represent early gestation versus blighted ovum. No evidence of pole or heart tones at this time. Recommend continued follow-up with serial beta-hCGs and ultrasound as indicated. Dictated by: Dictated on workstation # [id number]
== END ==
LOC: RAD 10:00
PROVIDERS: ATTEND Emergency Medicine
DX: O20.0 Threatened abortion (principal)
CPT/HCPCS: 76801; 76817

== ENCOUNTER → 2021-08-11 | Outpatient (CLI) | payer BC, OTHER ==
[~2021-08-11] MED LIST changes: +METHOTREXATE 50 MG/2 ML PF IM NR; +METHOTREXATE 50 MG/2 ML PF IV NR
[2021-08-11 13:40] VITALS: BP 107/70
== END ==
LOC: SDC 13:02
PROVIDERS: ATTEND Obstetrics & Gynecology
DX: Z02.89 Encounter for other administrative examinations (principal)
CPT/HCPCS: 96372